=== PATIENT | male | born 1985 | race Hispanic/Latino ===

== ENCOUNTER 2022-06-04 14:21 | Emergency (ER) | payer MEDICARE, MEDICAID ==
[2022-06-04 16:10] LABS: Amphetamine Screen,Urine PRESUMPTIVE NEGATIVE; Benzodiazepines Screen,Urine PRESUMPTIVE NEGATIVE; Cannabinoid Screen,Urine PRESUMPTIVE NEGATIVE; Cocaine Screen,Urine PRESUMPTIVE NEGATIVE; Methadone Screen,Urine PRESUMPTIVE NEGATIVE; Opiate Screen,Urine PRESUMPTIVE NEGATIVE
[2022-06-04 17:08] LABS: Basophils % (Auto) 0.3 % (0.0-1.8); Eosinophils # (Auto) 0.2 K/mm3 (0.0-0.4); Eosinophils % (Auto) 1.9 % (0.0-4.3); Hematocrit 47.3 % (35.5-45.6); Hemoglobin 15.4 gm/dl (11.8-15.2); Lymphocytes # (Auto) 1.8 K/mm3 (1.2-5.4); Mean Corpuscular HGB Conc 33 % (32-34); Mean Corpuscular Volume 88 fl (84-94); Monocytes # (Auto) 0.6 K/mm3 (0.0-0.8); Monocytes % (Auto) 6.6 % (0.0-7.3); Platelet Count 351 K/mm3 (140-440); Red Cell Distribution Width 13.8 % (13.2-15.2)
[2022-06-04 17:32] LABS: Alanine Aminotransferase 23 units/L (7-56); Albumin 4.9 g/dL (3.9-5); BUN/Creatinine Ratio 17; Blood Urea Nitrogen 12 mg/dL (9-20); Calcium 9.6 mg/dL (8.4-10.2); Hemolysis Index 4
[2022-06-04 17:43] LABS: Mucus,Urine 3+ /HPF
[2022-06-04 17:54] LABS: Bilirubin,Urine 2+ (Negative); Color,Urine Yellow (Yellow)
[2022-06-04 17:55] LABS: Blood,Urine 1+ (Negative); Ictotest,Urine Positive (Negative); Protein,Urine <15 mg/dL mg/dL (Negative)
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
--- NOTE | 2022-06-05 11:27 | Consultation ---
History of Present Illness - Reason for Consult Consult date: 06/05/22 Reason for consult: out of meds, depressed - History of Present Psychiatric Illness The patient was seen today. He is hyperverbal. The patient appears cognitively delayed and says he has a history of MR. He also says he has seizure disorder, ADHD, bipolar, schizophrenia and tourette syndrome. The patient says he lives at a longterm and has been out of his meds for about a month. He says he has a fiance and things are going okay with that. The patient says he he lost his mom and his step dad awhile back and things have been hard since then. He starts to cry. He says "I miss them a lot." The patient says "but I'm not suicidal and don't want to hurt myself or nobody else." He says "I just need my meds. I get sad without them." The patient says he was seen an outpatient psychiatrist but states the doctor stopped seeing him and he doesn't know why. He denies any illicit drug use, alcohol or nicotine. Will not recommend psychiatric inpatient treatment. Will give scripts and refer the patient to another outpatient psychiatrist. He is to get first dose of Abilify and trileptal prior to discharging. PAST PSYCHIATRIC HISTORY: Diagnoses: schizophrenia, bipolar, ADHD, tourette syndrome Suicide attempts or Self-harm behavior: Denies Prior psychiatric hospitalizations: yes Substance Abuse history: denies Previous psychiatric medications tried: abilify, trazodone, trileptal Outpatient treatment: yes PAST MEDICAL HISTORY: MR, Sz Family Psychiatric History: None reported or documented SOCIAL HISTORY Marital Status: single Living Arrangements: longterm Employment Status: disabled Access to guns/weapons: Denies Education: History of Abuse: Denies Legal History: Denies REVIEW OF SYSTEMS Constitutional: Negative for weight loss ENT: Negative for stridor Respiratory: Negative for cough or hemoptysis All other systems reviewed and are negative MENTAL STATUS EXAMINATION General Appearance and Behavior: Age appropriate, good hygiene, wearing appropriate clothes. anxious, cooperative Cooperation: Cooperative Psychomotor Behavior: Psychomotor normal Mood: depressed Affect and affective range: congruent with stated mood Thought Process: goal directed Thought Content: None Speech: Normal tone and pace Suicidal Ideation: Denies Homicidal Ideation: Denies Hallucinations: Denies Delusions: none elicited Impulse Control: Limited Insight and Judgment: Limited insight and poor judgment Memory: Limited Attention: attentive Orientation: a/o Assessment (1)Schizophrenia (2) Bipolar Disorder Treatment Plan Trileptal 600mg po BD Abilify 10mg po daily Trazodone 100mg po qhs Medical: per primary Sitter: defer to primary Disposition: do not recommend acute psychiatric inpatient treatment. The patient advised that if SI/HI or any fear of endangerment arise he is to seek immediate assistance. The patient to follow up with outpatient psych in 7 to 14 days upon discharge The stopper maker helper to give the patient resources to re-establish psych care The stopper maker helper to further discuss safety plan. Will sign off. Thanks. Case staffed with Dr. Peace Medications and Allergies Allergies Allergy/AdvReac Type Severity Reaction Status Date / Time No Known Allergies Allergy Unverified 06/04/22 15:10 Mental Status Exam - Vital signs Last Vital Signs Temp 97.8 F 06/04/22 22:18 Pulse 77 06/04/22 22:18 Resp 16 06/04/22 22:18 BP 125/68 06/04/22 22:18 Pulse Ox 98 06/04/22 22:18 Results Result Diagrams: 06/04/22 16:38 06/04/22 16:38 Abnormal lab results 06/04/22 06/04/22 06/04/22 Range/Units 16:38 16:38 16:38 RBC 5.40 H (3.65-5.03) M/mm3 Hgb 15.4 H (11.8-15.2) gm/dl Hct 47.3 H (35.5-45.6) % Seg Neutrophils % 72.2 H (40.0-70.0) % Creatinine 0.7 L (0.8-1.3) mg/dL Total Protein 8.4 H (6.3-8.2) g/dL Salicylates < 0.3 L (2.8-20.0) mg/dL Acetaminophen (10.0-30.0) ug/mL 06/04/22 Range/Units 16:38 RBC (3.65-5.03) M/mm3 Hgb (11.8-15.2) gm/dl Hct (35.5-45.6) % Seg Neutrophils % (40.0-70.0) % Creatinine (0.8-1.3) mg/dL Total Protein (6.3-8.2) g/dL Salicylates (2.8-20.0) mg/dL Acetaminophen 5.0 L (10.0-30.0) ug/mL All other labs normal.
[2022-06-05] MEDS ORDERED: ARIPiprazole 10 MG TAB PO NR (11:35)
[2022-06-05] MEDS ORDERED: OXcarbazepine 300 MG TAB PO NR (11:35)
[2022-06-05 12:20] VITALS: BP 114/27
== END 2022-06-05 12:23 | disposition home or self-care (01) ==
LOC: ED 14:21
DX: F32.9 Major depressive disorder, single episode, unspecified (principal); F20.9 Schizophrenia, unspecified; Z20.822 Contact with and (suspected) exposure to COVID-19; J45.909 Unspecified asthma, uncomplicated; Z98.890 Other specified postprocedural states; Z79.899 Other long term (current) drug therapy
CPT/HCPCS: 36415; 80053; 80307; 81001; 84443; 85025; 99284; U0003; 80320; G0480